=== PATIENT | female | born 1940 | race Caucasian/White ===

== ENCOUNTER 2019-02-28 05:55 | Day surgery (SDC) | payer MEDICARE, BC ==
[2019-02-28] MEDS ORDERED: Dextrose 5%-Lactated Ringers 1,000 ML IV SCH (06:30)
[2019-02-28] MEDS ORDERED: Propofol 200 MG/20 ML SDV ONE (07:10)
[2019-02-28] MEDS ORDERED: fentaNYL 100 MCG/2 ML SDV ONE (07:10)
[2019-02-28 09:53] VITALS: BP 137/66; PULSE 63
--- NOTE | 2019-03-13 08:46 | OR ---
DATE OF PROCEDURE: 02/28/2019 SURGEON: Garcia Puente MD PREOPERATIVE DIAGNOSIS: Laryngopharyngeal dysphagia. POSTOPERATIVE DIAGNOSES: 1. Laryngopharyngeal dysphagia with no evident laryngopharyngeal pathology. 2. Mild antral gastritis. OPERATIVE PROCEDURE: Esophagogastroduodenoscopy with antral biopsies for CLOtest. ANESTHESIA: IV sedation. INDICATION FOR PROCEDURE: This is an 78-year-old female presenting with some ongoing laryngopharyngeal dysphagia. To rule out significant pathology, the patient is to undergo an upper GI endoscopy with biopsies and/or dilation as indicated. Potential risks including bleeding and perforation were discussed, and the patient wishes to proceed. DETAILS OF PROCEDURE: The patient was taken to the operating room and placed in a left lateral decubitus position. IV sedation was administered after which the upper GI endoscope was passed orally through the length of the esophagus and into the stomach with retroflexion view of the fundus and thereafter through the pyloric channel into the proximal duodenum. Findings included normal hypopharynx and larynx. There was no significant inflammation and no anatomic abnormalities noted. The upper esophageal sphincter, esophageal body, and EG junction were likewise unremarkable. In the stomach, there was some mild diffuse gastritis, but without any erosions or ulcers. The pyloric channel and duodenum to the junction of the 3rd and 4th portions were unremarkable. The scope was then withdrawn, the above findings reconfirmed. The biopsies were obtained from the antrum and sent for CLOtest for H. pylori. The scope was then withdrawn and the procedure then concluded. The plan will be to perform a swallow study with speech pathology evaluation and then followup with Dr. Caceres sometime after that speech pathology evaluation has been completed. Otherwise, she will be needing omeprazole 40 mg daily for a longstanding history of some reflux. Garcia Puente MD Job #: [id number]
== END 2019-02-28 09:45 | disposition home or self-care (01) ==
LOC: JP.SDS 05:55
PROVIDERS: ATTEND Surgery
DX: K29.70 Gastritis, unspecified, without bleeding (principal); K21.9 Gastro-esophageal reflux disease without esophagitis; E78.5 Hyperlipidemia, unspecified; E11.9 Type 2 diabetes mellitus without complications; I10 Essential (primary) hypertension; Z91.040 Latex allergy status
CPT/HCPCS: 43239; 87081; J2704; J3010; J7042

== ENCOUNTER 2022-08-05 08:33 | Emergency (ER) | payer MEDICARE, BC ==
[2022-08-05] MEDS ORDERED: Sodium Chloride 0.9% 1,000 ML IV SCH (09:15)
[2022-08-05 09:37] LABS: ESTIMATED GFR 41 mL/min (>60)
[2022-08-05] MEDS ORDERED: Pantoprazole 40 MG Vial IVPUSH ONE (10:04)
[2022-08-05 10:37] VITALS: BP 120/71; PULSE 75
== END 2022-08-05 10:30 | disposition home or self-care (01) ==
LOC: JP.ED 08:33
DX: K52.9 Noninfective gastroenteritis and colitis, unspecified (principal); E78.00 Pure hypercholesterolemia, unspecified; E11.22 Type 2 diabetes mellitus with diabetic chronic kidney disease; N18.9 Chronic kidney disease, unspecified; K21.9 Gastro-esophageal reflux disease without esophagitis; Z91.040 Latex allergy status; Z79.82 Long term (current) use of aspirin; Z79.84 Long term (current) use of oral hypoglycemic drugs; Z87.891 Personal history of nicotine dependence; Z90.49 Acquired absence of other specified parts of digestive tract
CPT/HCPCS: 36415; 74176; 74176-26; 80053; 83690; 85025; 96361; 96374; 99284-25; C9113; J7030

== ENCOUNTER 2023-05-24 11:54 | Emergency (ER) | payer MEDICARE, BC ==
[2023-05-24] MEDS ORDERED: Sodium Chloride 0.9% 10 ML Syringe FLUSH PRN (12:04)
[2023-05-24 12:22] LABS: BASOPHILS PERCENT AUTO 0.2 % (0.1-1.3); EOSINOPHILS ABSOLUTE AUTO 0.25 K/uL (0.00-0.40); EOSINOPHILS PERCENT AUTO 2.7 % (0.0-5.4); HEMATOCRIT 37.4 % (34.3-46.0); HEMOGLOBIN 11.9 g/dL (11.2-15.5); IMMATURE GRAN ABSOLUTE AUTO 0.04 K/uL (0.00-0.23); IMMATURE GRAN PERCENT AUTO 0.4 % (0.0-0.7); MEAN CORPUSCULAR HEMOGLOBIN 28.7 pg (31.6-35.5); MEAN CORPUSCULAR HGB CONC 31.8 g/dL (31.6-35.5); MEAN CORPUSCULAR VOLUME 90.1 fL (81.4-99.0); MONOCYTES ABSOLUTE AUTO 0.75 K/uL (0.20-0.90); NEUTROPHILS ABSOLUTE AUTO 6.82 K/uL (1.0-7.6); NEUTROPHILS PERCENT AUTO 72.7 % (40.0-78.1); PLATELET COUNT,PLT 303 K/uL (130-375); RED BLOOD CELL COUNT 4.15 M/uL (3.77-5.24); WHITE BLOOD CELL COUNT,WBC 9.4 K/uL (3.2-11.0)
[2023-05-24 12:24] LABS: BASOPHILS ABSOLUTE AUTO 0.02 K/uL (0.00-0.10)
[2023-05-24 12:43] LABS: PROTHROMBIN TIME 10.5 sec (9.2-10.6); PTT,PARTIAL THROMBOPLSTIN TIME 26.4 sec (21.8-27.3)
[2023-05-24 12:48] LABS: CREATININE 1.4 mg/dL (0.6-1.0); EST CRCL DRUG DOSING (CG) 24.74 mL/min; POTASSIUM,K 5.7 mmol/L (3.6-5.2); TROPONIN I HIGH SENSITIVITY 7.3 pg/mL (<=60.3)
[2023-05-24 12:51] LABS: ANION GAP 13.7 mmol/L (5.0-14.0)
[2023-05-24] MEDS: Gadoteridol 279.3 MG/ML 15 ML SDV IV SCH (13:33)
[2023-05-24] MEDS: Sodium Chloride 0.9% 500 ML IV ONE ×2 (14:10→14:45)
[2023-05-24] MEDS: Atropine 0.1 MG/ML 10 ML Syringe IVPUSH ONE (14:25)
[2023-05-24] MEDS: Atropine 0.4 MG/ML SDV IVPUSH ONE (14:25)
[2023-05-24 15:20] VITALS: BP 109/48; PULSE 60
== END 2023-05-24 15:50 | disposition home or self-care (01) ==
LOC: JP.ED 11:54
DX: E87.5 Hyperkalemia (principal); R55 Syncope and collapse; D32.9 Benign neoplasm of meninges, unspecified; E87.1 Hypo-osmolality and hyponatremia; I12.9 Hypertensive chronic kidney disease with stage 1 through stage 4 chronic kidney disease, or unspecified chronic kidney disease; N18.32 Chronic kidney disease, stage 3b; E11.9 Type 2 diabetes mellitus without complications; E78.00 Pure hypercholesterolemia, unspecified; K21.9 Gastro-esophageal reflux disease without esophagitis; Z91.041 Radiographic dye allergy status; Z91.040 Latex allergy status; Z79.82 Long term (current) use of aspirin; Z79.899 Other long term (current) drug therapy
CPT/HCPCS: 36415; 70450; 70553; 80048; 84484; 85025; 85610; 85730; 93005; 96374; 99284; A9579; J0461; J7040

== ENCOUNTER 2023-08-12 21:30 | Emergency (ER) | payer MEDICARE, BC ==
[2023-08-12 21:45] VITALS: BP 143/84; PULSE 93
[2023-08-12 22:19] LABS: BASOPHILS ABSOLUTE AUTO 0.03 K/uL (0.00-0.10); BASOPHILS PERCENT AUTO 0.3 % (0.1-1.3); EOSINOPHILS ABSOLUTE AUTO 0.04 K/uL (0.00-0.40); EOSINOPHILS PERCENT AUTO 0.4 % (0.0-5.4); HEMATOCRIT 35.9 % (34.3-46.0); HEMOGLOBIN 11.8 g/dL (11.2-15.5); IMMATURE GRAN ABSOLUTE AUTO 0.04 K/uL (0.00-0.23); IMMATURE GRAN PERCENT AUTO 0.4 % (0.0-0.7); LYMPHOCYTES ABSOLUTE AUTO 0.87 K/uL (0.8-3.3); LYMPHOCYTES PERCENT AUTO 8.5 % (11.4-47.7); MEAN CORPUSCULAR HEMOGLOBIN 28.6 pg (31.6-35.5); MEAN CORPUSCULAR HGB CONC 32.9 g/dL (31.6-35.5); MEAN CORPUSCULAR VOLUME 86.9 fL (81.4-99.0); MONOCYTES ABSOLUTE AUTO 0.81 K/uL (0.20-0.90); MONOCYTES PERCENT AUTO 7.9 % (3.3-12.6); NEUTROPHILS ABSOLUTE AUTO 8.44 K/uL (1.0-7.6); NEUTROPHILS PERCENT AUTO 82.5 % (40.0-78.1); PLATELET COUNT,PLT 260 K/uL (130-375); RED BLOOD CELL COUNT 4.13 M/uL (3.77-5.24); WHITE BLOOD CELL COUNT,WBC 10.2 K/uL (3.2-11.0)
[2023-08-12 22:20] LABS: APPEARANCE,URINE CLEAR (CLEAR); BILIRUBIN,URINE NEGATIVE (NEGATIVE); COLOR,URINE YELLOW (YELLOW); GLUCOSE,URINE NEGATIVE (NEGATIVE); KETONES,URINE 15 mg/dL (NEGATIVE); LEUKOCYTE ESTERASE,URINE NEGATIVE (NEGATIVE); NITRITE,URINE NEGATIVE (NEGATIVE); OCCULT BLOOD,URINE SMALL (NEGATIVE); PROTEIN,URINE 100 mg/dL (NEGATIVE); UROBILINOGEN,URINE 0.2 EU/dL (0.2-1.0)
[2023-08-12 22:26] LABS: AMORPHOUS SEDIMENT,URINE NOT SEEN; BACTERIA,URINE NOT SEEN; EPITHELIAL CELLS,URINE FEW; MUCUS,URINE RARE; WBC,URINE 0-5 (0-5)
[2023-08-12 22:31] LABS: A/G RATIO 0.8 (1.2-2.2); ALANINE AMINOTRANSFERASE,ALT 50 U/L (12-78); ALBUMIN 3.6 g/dL (3.4-5.0); ALKALINE PHOSPHATASE 199 U/L (46-116); ASPARTATE AMNIOTRANSFERASE,AST 33 U/L (15-37); BILIRUBIN TOTAL 0.8 mg/dL (0.2-1.0); BLOOD UREA NITROGEN,BUN 23 mg/dL (7-18); CALCIUM 9.5 mg/dL (8.5-10.1); CARBON DIOXIDE,CO2 26 mmol/L (21-32); CHLORIDE,CL 92 mmol/L (100-108); CREATININE 1.3 mg/dL (0.6-1.0); EST CRCL DRUG DOSING (CG) 30.77 mL/min; ESTIMATED GFR 40 mL/min (>60); GLUCOSE RANDOM 159 mg/dL (74-106); POTASSIUM,K 4.7 mmol/L (3.6-5.2); PROTEIN TOTAL,TP 8.1 g/dL (6.4-8.2); SODIUM,NA 128 mmol/L (140-148)
[2023-08-12 22:36] LABS: ANION GAP 14.7 mmol/L (5.0-14.0)
[2023-08-12] MEDS: Sodium Chloride 0.9% 1,000 ML IV SCH (22:58)
[2023-08-12 23:22] LABS: CORONAVIRUS COVID-19 NAA NEGATIVE (NEGATIVE); INFLUENZA A NAA NEGATIVE (NEGATIVE); INFLUENZA B NAA NEGATIVE (NEGATIVE); RESPIRATORY SYNCYTIAL VIR NAA NEGATIVE (NEGATIVE)
== END 2023-08-13 01:03 | disposition home or self-care (01) ==
LOC: JP.ED 21:30
DX: E86.0 Dehydration (principal); J32.9 Chronic sinusitis, unspecified; E11.9 Type 2 diabetes mellitus without complications; E78.00 Pure hypercholesterolemia, unspecified; K21.9 Gastro-esophageal reflux disease without esophagitis; Z87.891 Personal history of nicotine dependence; Z79.84 Long term (current) use of oral hypoglycemic drugs; Z79.899 Other long term (current) drug therapy; Z91.041 Radiographic dye allergy status; Z91.040 Latex allergy status
CPT/HCPCS: 0241U; 36415; 70210; 70450; 80053; 81001; 82947; 85025; 96360; 96361; 99283; 99285; J7030